=== PATIENT | male | born 1960 | race Caucasian/White ===

== ENCOUNTER 2022-09-30 06:15 | Day surgery (SDC) | payer BC ==
[2022-09-30] MEDS ORDERED: Lactated Ringers 1,000 ML IV SCH (07:00)
[2022-09-30] MEDS ORDERED: Propofol 200 MG/20 ML SDV ONE (07:20)
[2022-09-30] MEDS ORDERED: Midazolam 1 MG/ML 2 ML SDV ONE (07:20)
[2022-09-30] MEDS ORDERED: fentaNYL 50 MCG/ML SDV ONE (07:20)
== END 2022-09-30 09:19 | disposition home or self-care (01) ==
LOC: JP.SDS 06:15
PROVIDERS: ATTEND Family Medicine
DX: D12.8 Benign neoplasm of rectum (principal); K51.40 Inflammatory polyps of colon without complications; K57.30 Diverticulosis of large intestine without perforation or abscess without bleeding; I10 Essential (primary) hypertension; E11.9 Type 2 diabetes mellitus without complications; E78.5 Hyperlipidemia, unspecified; E66.9 Obesity, unspecified; Z68.34 Body mass index [BMI] 34.0-34.9, adult
CPT/HCPCS: 45380; 88305; J2250; J2704; J3010; J7120